=== PATIENT | male | born 1995 | race Caucasian/White ===

== ENCOUNTER 2022-06-05 12:38 | Emergency (ER) | payer OTHER, SELFPAY ==
[2022-06-05 12:53] VITALS: BP 145/64; PULSE 77; RESP 20; TEMP 37.1; O2SAT 98
--- NOTE | 2022-06-05 13:34 | ED.BACK ---
HPI - Back Pain/Injury General Chief Complaint: Back Pain/Injury Stated Complaint: Low Back Pain Time Seen by Provider: 06/05/22 13:30 Source: patient, RN notes reviewed and old records reviewed Mode of arrival: ambulatory Limitations: no limitations History of Present Illness HPI Narrative: 26 year old male who presents to [facility] care with complaints of back pain which occurred this weekend when he was moving furniture for his girlfriend. He reports that his pain has decreased and he needs note to go back to work. He states that he had to call off last nite but he feels that he is better and wants to return to work. He continues to have some tenderness to left lower back, denies any radiation of his discomfort, denies any tingling or numbness to his lower extremities.Patient denies any difficulty with bowel or bladder or any saddle paraesthesia. He states that he has been taking Tylenol and using some ice and heat to his back. MD elicited complaint: back pain Pertinent past history: other (lifting furniture at home over weekend) Onset (ago): day(s) (3-4 days) Location: left lower back Radiation: none Work related injury: No Related Data Allergies Allergy/AdvReac Type Severity Reaction Status Date / Time codeine Allergy Rash Verified 06/05/22 12:52 Review of Systems Review of Systems: CONSTITUTIONAL: Denies fever, chills, or sweats. EYES: Denies visual changes, redness, or discharge. ENT: Denies rhinorrhea, congestion, sore throat, or otalgia. CARDIOVASCULAR: Denies chest pain, palpitations, or edema. RESPIRATORY: Denies cough or dyspnea. GASTROINTESTINAL: Denies abdominal pain, nausea, vomiting, or diarrhea. GENITOURINARY: Denies dysuria or hematuria. SKIN: Denies rash or itching. MUSCULOSKELETAL: Positive for left lower back pain, joint pain, or myalgia. NEUROLOGIC: Denies headache, numbness, or weakness. PSYCHIATRIC: Denies anxiety or depression. All systems reviewed & are unremarkable except as noted in HPI and below PMFSH Past Medical History Medical History (Updated 06/06/22 @ 09:11 by Reena Oakes NP) No pertinent past medical history Surgical History Surgical History (Updated 06/06/22 @ 09:11 by Reena Oakes NP) No history of previous surgery Social History Social History (Updated 06/06/22 @ 09:12 by Reena Oakes NP) Smoking status: Never smoker Alcohol intake: current Alcohol use details: social Substance use type: does not use Living arrangements: with family Gender identity (if verbalized by the patient): Male Comments At time of signature agree with nursing documentation of past medical surgical, social and family history. There is no relevant family history that is pertinent to presenting complaint. Exam Narrative: GENERAL: Well-appearing, well-nourished, and in no acute distress. HEAD: Normocephalic, atraumatic. EYES: PERRLA and EOMI. ENT: Nares clear, no rhinorrhea or epistaxis. Mucous membranes moist. NECK: Supple.no lymphadenopathy CHEST: Clear to auscultation. No respiratory distress.SAO2 98% on room air HEART: Regular rate and rhythm. No murmur heard. Normal peripheral pulses. ABDOMEN: Soft, nontender, nondistended, normal active bowel sounds. EXTREMITIES: Normal range of motion. No edema. Some palpable tenderness to left lower back along SI region with no pain to paraspinal region, no radiation of pain or any tingling or numbness down legs or any changes in bowel or bladder function, gait steady with no increase pain with forward or backward flexion SKIN: Warm, dry, no rash NEURO: No focal deficits. Alert and oriented x3. Course Course Level of Care: Express Care Visit Vital Signs Vital signs: Vital Signs Temperature 37.1 C 06/05/22 12:53 Pulse Rate 77 06/05/22 12:53 Respiratory Rate 20 06/05/22 12:53 Blood Pressure 145/64 H 06/05/22 12:53 Pulse Oximetry 98 06/05/22 12:53 Oxygen Delivery Room Air 06/05/22 12:53 Temperature 37.1 C
== END 2022-06-05 13:53 | disposition home or self-care (01) ==
PROVIDERS: Emergency Provider Registered Nurse; PCP Nurse Practitioner Family
DX: S39.012A Strain of muscle, fascia and tendon of lower back, initial encounter (principal); X50.3XXA Overexertion from repetitive movements, initial encounter
CPT/HCPCS: 99213; G0463